=== PATIENT | male | born 1955 | race Caucasian/White ===

== ENCOUNTER 2024-09-20 08:38 | Outpatient (RCR) | payer MEDICARE, BC, SELFPAY ==
--- NOTE | 2024-09-05 14:17 | CTCSNOTE_ITS ---
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 a (C) Patient was treated with custom blocks. a. Electronically signed by: Vignesh Bhandari MD, MAHESHR 09/05/2024 2:15 PM
== END 2024-09-23 23:59 | disposition home or self-care (01) ==
LOC: SCTC 08:38
PROVIDERS: PCP Family Medicine; Referring Provider Family Medicine; Visit Provider Radiology Therapeutic Radiology
DX: Z51.0 Encounter for antineoplastic radiation therapy (principal); C44.329 Squamous cell carcinoma of skin of other parts of face
CPT/HCPCS: 77290; 77300; 77332; 77336; 77412

== ENCOUNTER 2024-10-19 08:38 | Outpatient (RCR) | payer MEDICARE, BC, SELFPAY ==
--- NOTE | 2024-09-25 12:32 | CTCTRTNOTE_ITS ---
[facility] [address], [place] [address] Weekly Management Date: 09/25/2024 ?? Name: NARESH LEIVA : 1955 A. Patient is currently at 2250 cGy. B. Patient is tolerating treatment well. C. Resume radiation therapy. Electronically signed by: Vignesh Bhandari M.D. 09/25/2024 12:30 PM
== END 2024-10-24 23:59 | disposition home or self-care (01) ==
LOC: SCTC 08:38
PROVIDERS: PCP Family Medicine; Referring Provider Family Medicine; Visit Provider Radiology Therapeutic Radiology
DX: Z51.0 Encounter for antineoplastic radiation therapy (principal); C44.329 Squamous cell carcinoma of skin of other parts of face; L59.8 Other specified disorders of the skin and subcutaneous tissue related to radiation; Y84.2 Radiological procedure and radiotherapy as the cause of abnormal reaction of the patient, or of later complication, without mention of misadventure at the time of the procedure
CPT/HCPCS: 77336; 77412

== ENCOUNTER 2024-11-02 09:58 | Outpatient (RCR) | payer MEDICARE, BC, SELFPAY ==
--- NOTE | 2024-11-02 10:23 | CTCTSUMM_ITS ---
[facility] [address] [place], [place] [address] Treatment Summary Date: 11/02/2024 MR#: [id number] Name: NARESH LEIVA : 1955 Dx: C44.320 Referring Physician: JOSE ANGEL Estrada (A) Diagnosis: [ICD10] C44.320 Squamous cell carcinoma of skin of unspecified parts of face (B) Aim of Treatment: ??Curative (C) Concomitant Chemotherapy: No (D) Radiation Dates: 09/11/2024 through 10/19/2024 Treatment Prescription R mu-ism ENFACE ELECTRONS 06 MeV E- 6,250 cGy 25 250 cGy Approved R anteror scalp ENFACE ELECTRONS 06 MeV E- 6,250 cGy 25 250 cGy Approved (E) All joaquin were treated using customized MLC Blocks (F) Finding at Discharge: Patient tolerated treatments well with good reaction of skin at the treatme nt sites. (G) Discharge Instructions: The patient was also advised to continue follow-up with Dr. Hernandez and [facility] physician: Cc: Jones Charles MD: Jamshid Hernandez MD (t) [phone] Electronically signed by: Vignesh Bhandari MD, DABR 11/02/2024 10:21 AM
== END 2024-11-24 23:59 | disposition home or self-care (01) ==
LOC: SCTC 09:58
PROVIDERS: PCP Family Medicine; Referring Provider Family Medicine; Visit Provider Radiology Therapeutic Radiology
DX: C44.320 Squamous cell carcinoma of skin of unspecified parts of face (principal); Z92.3 Personal history of irradiation
CPT/HCPCS: 99212; G0463

== ENCOUNTER → 2024-11-23 | Outpatient (CLI) | payer MEDICARE, BC, SELFPAY ==
[2024-11-23 08:32] LABS: Basophils % (Auto) 1 % (0-2.5); Eosinophils # (Auto) 0.2 Thou/mm3 (0.0-0.5); Eosinophils % (Auto) 3 % (0-10); Hemoglobin 12.4 g/dL (13.5-16.0); Immature Granulocytes % (Auto) 1 % (0-0); Immature Granulocytes Auto 0.03 Thou/mm3 (0.00-0.00); Lymphocytes # (Auto) 1.1 Thou/mm3 (1.0-4.8); Lymphocytes % (Auto) 17 % (10-50); Mean Corpuscular HGB Conc 33.5 g/dl (31.0-37.0); Mean Corpuscular Volume 95 fL (80-100); Monocytes # (Auto) 0.7 Thou/mm3 (0.0-0.8); Monocytes % (Auto) 11 % (0-12); Neutrophils # (Auto) 4.4 Thou/mm3 (1.8-7.7); Neutrophils % (Auto) 69 % (37-80); Nucleated Red Blood Cell % 0 /100 WBC (0); Platelet Count 325 Thou/mm3 (140-440); RDW Standard Deviation 48.9 fL (35.1-43.9); Red Blood Count 3.88 Miln/mm3 (4.50-5.90); White Blood Count 6.4 Thou/mm3 (3.8-10.6)
[2024-11-23 08:51] LABS: Glucose Estimated Average 117 mg/dL (80-131); Hemoglobin A1C 5.7 % Hgb (4.8-6.0)
[2024-11-23 08:53] LABS: Prostate Specific Antigen 4.81 ng/mL (0-4.00)
[2024-11-23 08:57] LABS: Sed Rate (ESR) 35 mm/hr (0-20)
[2024-11-23 09:11] LABS: Creatinine MALB Rnd Ur 57 mg/dL (30-125); Microalbumin, Random Urine < 3 mg/L (0-300)
[2024-11-23 09:12] LABS: Alanine Aminotransferase 16 U/L (10-49); Albumin/Globulin Ratio 1.4 (1.2-2.2); Alkaline Phosphatase 72 U/L (46-116); Anion Gap 5 (7-16); Aspartate Amino Transferase 16 U/L (0-34); BUN/Creatinine Ratio 23 Ratio (12-20); Bilirubin,Total 0.6 mg/dL (0.3-1.2); Blood Urea Nitrogen 25 mg/dL (9-23); Calcium 9.5 mg/dL (8.3-10.6); Calcium (Corrected) 9.5 mg/dL (8.5-10.1); Carbon Dioxide 27.7 mMol/L (20.0-31.0); Cardiac Risk Estimate 3.5 RATIO (4.0-6.7); Chloride 102 mMol/L (98-107); Cholesterol 165 mg/dL (132-200); Creatinine (Component) 1.1 mg/dL (0.6-1.3); Globulin 2.8 gm/dL (2.3-3.5); Glucose 96 mg/dL (74-106); HDL Cholesterol 47 mg/dL (40-60); LDL Cholesterol,Calculated 106 mg/dL (0-130); Osmolality,Calculated 274 (275-295); Potassium 4.5 mMol/L (3.4-5.1); Sodium 135 mMol/L (136-145); Total Protein 6.8 gm/dL (5.7-8.2); Triglycerides 60 mg/dL (30-150); eGFR > 60 See Note
== END | disposition home or self-care (01) ==
LOC: COPL 07:14
PROVIDERS: PCP Family Medicine; Referring Provider Family Medicine; Visit Provider Internal Medicine
DX: E11.65 Type 2 diabetes mellitus with hyperglycemia (principal); Z12.5 Encounter for screening for malignant neoplasm of prostate; I10 Essential (primary) hypertension; K12.2 Cellulitis and abscess of mouth; K21.9 Gastro-esophageal reflux disease without esophagitis; L03.221 Cellulitis of neck; L08.9 Local infection of the skin and subcutaneous tissue, unspecified; M05.79 Rheumatoid arthritis with rheumatoid factor of multiple sites without organ or systems involvement; M35.01 Sjogren syndrome with keratoconjunctivitis; M79.671 Pain in right foot; R53.83 Other fatigue; S60.519A Abrasion of unspecified hand, initial encounter; X58.XXXA Exposure to other specified factors, initial encounter; U07.1 COVID-19; Z92.25 Personal history of immunosuppression therapy
CPT/HCPCS: 36415; 80053; 80061; 82043; 82570; 83036; 84153; 85025; 85652; 86140

== ENCOUNTER → 2025-01-05 | Outpatient (CLI) | payer MEDICARE, BC, SELFPAY ==
[2025-01-05 10:57] LABS: Anion Gap 9 (7-16); BUN/Creatinine Ratio 20 Ratio (12-20); Blood Urea Nitrogen 26 mg/dL (9-23); Calcium 9.6 mg/dL (8.3-10.6); Carbon Dioxide 27.1 mMol/L (20.0-31.0); Chloride 103 mMol/L (98-107); Creatinine (Component) 1.3 mg/dL (0.6-1.3); Glucose 100 mg/dL (74-106); Osmolality,Calculated 282 (275-295); Potassium 5.4 mMol/L (3.4-5.1); Sodium 139 mMol/L (136-145); eGFR 59 See Note
== END | disposition home or self-care (01) ==
LOC: COPL 09:36
PROVIDERS: PCP Family Medicine; Referring Provider Family Medicine; Visit Provider Family Medicine
DX: E11.65 Type 2 diabetes mellitus with hyperglycemia (principal); I10 Essential (primary) hypertension
CPT/HCPCS: 36415; 80048

== ENCOUNTER → 2025-01-26 | Outpatient (CLI) | payer MEDICARE, BC, SELFPAY ==
[2025-01-26 10:35] LABS: Basophils % (Auto) 0 % (0-2.5); Eosinophils # (Auto) 0.2 Thou/mm3 (0.0-0.5); Eosinophils % (Auto) 3 % (0-10); Hematocrit 39.5 % (41.0-53.0); Hemoglobin 13.5 g/dL (13.5-16.0); Immature Granulocytes % (Auto) 1 % (0-0); Immature Granulocytes Auto 0.09 Thou/mm3 (0.00-0.00); Lymphocytes # (Auto) 1.1 Thou/mm3 (1.0-4.8); Lymphocytes % (Auto) 16 % (10-50); Mean Corpuscular HGB Conc 34.2 g/dl (31.0-37.0); Mean Corpuscular Volume 94 fL (80-100); Monocytes # (Auto) 0.6 Thou/mm3 (0.0-0.8); Monocytes % (Auto) 9 % (0-12); Neutrophils % (Auto) 70 % (37-80); Nucleated Red Blood Cell % 0 /100 WBC (0); Platelet Count 330 Thou/mm3 (140-440); RDW Standard Deviation 48.2 fL (35.1-43.9); Red Blood Count 4.22 Miln/mm3 (4.50-5.90); White Blood Count 7.1 Thou/mm3 (3.8-10.6)
[2025-01-26 10:37] LABS: Partial Thromboplastin Time 27.6 Seconds (22.0-36.0)
== END | disposition home or self-care (01) ==
LOC: COPL 08:52
PROVIDERS: PCP Family Medicine; Referring Provider Dentist; Visit Provider Dentist
DX: R22.0 Localized swelling, mass and lump, head (principal); M27.40 Unspecified cyst of jaw
CPT/HCPCS: 36415; 85025; 85610; 85730

== ENCOUNTER 2025-05-16 09:08 | Outpatient (RCR) | payer MEDICARE, BC, SELFPAY ==
--- NOTE | 2025-05-16 10:15 | CTCFLWUP_ITS ---
[facility] [address] [place], [place] [address] FOLLOW-UP NOTE Date: 05/16/2025 MR#: [id number] Name: NARESH LEIVA : 1955 Dx: C44.320 Squamous cell carcinoma of skin of unspecified parts of face Identification. Patient was previously seen for squamous cell CA of skin and had 2 sites treated in right anterior scalp and right nondenominational completed 10/19/2024. Patient had a good reaction and there is no sign of recurrence thus far. On 04/19/2025 patient underwent superficial right parotidectomy with facial nerve monitoring. 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 P16 patchy positive no definite evidence of angiolymphatic invasion and perineural invasion. According to comment it was unclear if this is squamous CA invading or arising from the parotid gland. According to Dr. Luis, given his diagnosis of multiple squamous SCCA skin cancers this is likely a met and the likelihood of positive margins recommended radiation therapy. PET scan also recommended due to the apparent aggressiveness of this skin cancer Inspected the wound in the right facial region which appears to be healing satisfactorily and I will see the patient again in a month for further wound healing and the PET scan results to be discussed. . Electronically signed by: Vignesh Bhandari M.D. 05/16/2025 10:12 AM
== END 2025-05-24 23:59 | disposition home or self-care (01) ==
LOC: SCTC 09:08
PROVIDERS: PCP Family Medicine; Referring Provider Radiology Therapeutic Radiology; Visit Provider Radiology Therapeutic Radiology
DX: C07 Malignant neoplasm of parotid gland (principal); Z85.828 Personal history of other malignant neoplasm of skin
CPT/HCPCS: 99213; G0463

== ENCOUNTER → 2025-05-29 | Outpatient (CLI) | payer MEDICARE, BC, SELFPAY ==
[2025-05-29 14:35] LABS: Basophils # (Auto) 0.0 Thou/mm3 (0.0-0.2); Basophils % (Auto) 0 % (0-2.5); Eosinophils # (Auto) 0.1 Thou/mm3 (0.0-0.5); Eosinophils % (Auto) 3 % (0-10); Hematocrit 34.9 % (41.0-53.0); Hemoglobin 11.3 g/dL (13.5-16.0); Immature Granulocytes Auto 0.03 Thou/mm3 (0.00-0.00); Lymphocytes # (Auto) 1.3 Thou/mm3 (1.0-4.8); Lymphocytes % (Auto) 24 % (10-50); Mean Corpuscular HGB Conc 32.4 g/dl (31.0-37.0); Mean Corpuscular Hemoglobin 32.1 pg (25.0-35.0); Mean Corpuscular Volume 99 fL (80-100); Monocytes # (Auto) 0.6 Thou/mm3 (0.0-0.8); Monocytes % (Auto) 10 % (0-12); Neutrophils # (Auto) 3.5 Thou/mm3 (1.8-7.7); Neutrophils % (Auto) 62 % (37-80); Nucleated Red Blood Cell # 0.00 Thou/mm3 (0.00-0.00); Nucleated Red Blood Cell % 0 /100 WBC (0); Platelet Count 299 Thou/mm3 (140-440); RDW Standard Deviation 51.6 fL (35.1-43.9); Red Blood Count 3.52 Miln/mm3 (4.50-5.90); White Blood Count 5.6 Thou/mm3 (3.8-10.6)
[2025-05-29 14:45] LABS: Glucose Estimated Average 123 mg/dL (80-131); Hemoglobin A1C 5.9 % Hgb (4.8-6.0)
[2025-05-29 14:52] LABS: Sed Rate (ESR) 12 mm/hr (0-20)
[2025-05-29 14:56] LABS: Alanine Aminotransferase 13 U/L (10-49); Albumin, Serum 3.9 gm/dL (3.4-4.8); Albumin/Globulin Ratio 1.8 (1.2-2.2); Alkaline Phosphatase 67 U/L (46-116); Anion Gap 8 (7-16); Aspartate Amino Transferase 19 U/L (0-34); BUN/Creatinine Ratio 24 Ratio (12-20); Bilirubin,Total 0.2 mg/dL (0.3-1.2); Blood Urea Nitrogen 33 mg/dL (9-23); C-Reactive Protein < 0.5 mg/dL (0.0-0.9); Calcium 9.2 mg/dL (8.3-10.6); Calcium (Corrected) 9.3 mg/dL (8.5-10.1); Carbon Dioxide 25.9 mMol/L (20.0-31.0); Chloride 107 mMol/L (98-107); Creatinine (Component) 1.4 mg/dL (0.6-1.3); Globulin 2.2 gm/dL (2.3-3.5); Glucose 104 mg/dL (74-106); Osmolality,Calculated 288 (275-295); Potassium 5.0 mMol/L (3.4-5.1); Sodium 141 mMol/L (136-145); Total Protein 6.1 gm/dL (5.7-8.2); eGFR 54 See Note
== END | disposition home or self-care (01) ==
LOC: COPL 13:26
PROVIDERS: PCP Family Medicine; Referring Provider Internal Medicine; Visit Provider Internal Medicine
DX: E11.65 Type 2 diabetes mellitus with hyperglycemia (principal); I10 Essential (primary) hypertension; K12.2 Cellulitis and abscess of mouth; K21.9 Gastro-esophageal reflux disease without esophagitis; L03.221 Cellulitis of neck; L08.9 Local infection of the skin and subcutaneous tissue, unspecified; M05.79 Rheumatoid arthritis with rheumatoid factor of multiple sites without organ or systems involvement; M35.01 Sjogren syndrome with keratoconjunctivitis; M79.671 Pain in right foot; R53.83 Other fatigue; S60.519A Abrasion of unspecified hand, initial encounter; X58.XXXA Exposure to other specified factors, initial encounter; U07.1 COVID-19; Z92.25 Personal history of immunosuppression therapy
CPT/HCPCS: 36415; 80053; 83036; 85025; 85652; 86140

== ENCOUNTER → 2025-06-26 | Outpatient (CLI) | payer MEDICARE, BC, SELFPAY ==
--- NOTE | 2025-06-26 09:15 | XR_ITS ---
EXAMINATION: PET/CT FUSION SKULL TO THIGH EXAM DATE AND TIME: June 26, 2025 1222 hours INDICATIONS: Diagnosis squamous cell carcinoma of the face CTDI:vol (mGy) 5.57 DLP: (mGycm) 578 PROCEDURE: 14.6 mCi FDG was administered intravenously To allow for distribution and uptake of radiotracer, the patient was allowed to rest quietly in a shielded room. Imaging was performed on an integrated 16-slice PET/CT scanner, with scanning from the skull base to the mid thigh. Serum blood glucose at the time of the injection was measured 105 mg/dL. CT scanning was performed without oral or intravenous contrast material. FINDINGS: Head and Neck: Hypermetabolic soft tissue mass right face surrounding the right mandibular condyle, involving the anterior and posterior margins of the ear, beginning above the posterior right zygomatic arch and extending caudad to below and lateral to the right mandibular angle and extending anteriorly to the mid right zygomatic process, measuring at least 4.9 x 3.8 x 3.6 cm The mass begins above the posterior right zygomatic arch and extends caudad to below and lateral to the right mandibular angle Chest: Hypermetabolic 10 mm pulmonary nodule spiculated margins posterior right upper lobe image 121 Abdomen and Pelvis: There is no michelle hypermetabolism in retroperitoneal or pelvic chains. The spleen is normal in size and FDG avidity. Musculoskeletal: Marrow uptake is within normal range. IMPRESSION: Hypermetabolic soft tissue mass right face surrounding the right mandibular condyle,, extending from the posterior right zygomatic arch caudad to below and lateral to the right mandibular angle, 4.9 x 3.8 x 3.6 cm Hypermetabolic 10 mm pulmonary nodule spiculated margins right upper lobe
== END | disposition home or self-care (01) ==
PROVIDERS: Referring Provider Radiology Therapeutic Radiology; Visit Provider Radiology Therapeutic Radiology
DX: R22.0 Localized swelling, mass and lump, head (principal); R91.1 Solitary pulmonary nodule; C44.320 Squamous cell carcinoma of skin of unspecified parts of face; C44.329 Squamous cell carcinoma of skin of other parts of face
CPT/HCPCS: 78815; A9552

== ENCOUNTER 2025-07-24 07:53 | Outpatient (RCR) | payer MEDICARE, BC, SELFPAY ==
--- NOTE | 2025-07-03 09:03 | CTCFLWUP_ITS ---
[facility] [address] [place], [place] [address] FOLLOW-UP NOTE Date: 07/03/2025 MR#: [id number] Name: NARESH LEIVA : 1955 Dx: C44.320 Squamous cell carcinoma of skin of unspecified parts of face Identification. Patient with squamous cell CA of skin treatments in the past with various measures including surgery and radiation therapy underwent superficial right parotidectomy 03/19/2025 p16 patchy positive with no definite evidence of angiolymphatic invasion and perineural invasion. According to path report it was unclear if squamous cell CA was invading into or arising from the parotid gland. PET scan ordered 06/26/2025 revealed hypermetabolic soft tissue mass right face surrounding the right mandibular condyle extending from the posterior right zygomatic arch caudad to below and lateral to the right mandibular angle 4.9 x 3.8 x 3.6 cm. There was also hypermetabolic 10 mm pulmonary nodule right upper lobe. There is an obvious urgency to begin radiation therapy soon as possible. Patient is having pain in the right side of the face and using local care for what appears to be oozing from the right auricular region and taking pain pills. A#1. 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 Unclear if malignancy was invading into or arising from the parotid gland according to path report. History of multiple SCCA treated with surgery and radiation in the past, multiple areas of body. A#2. PET scan shows hypermanic soft tissue mass right face extending from the posterior right zygomatic to below and lateral to right mandibular angle. A#3. Hypermetabolic 10 mm pulmonary nodule right upper lobe. A#4. Patient has history of valley fever and any case there is an urgency to treat the right facial region which will begin POLI, approximately 7000 cGy to area at risk using modern VMAT technique. A#5. Posttreatment PET will check on response along with checking on the right upper lobe lesion which is barely large enough to biopsy at this point A#6. Patient told to see the dentist regarding preradiation dental eval and patient has an appointment with Dr. Luis in AM. Side effects explained. Cc: Jones Charles MD Brain Toby DELGADO MD this finished this okay I wish I was just to be smarter and Electronically signed by: Vignesh Bhandari M.D. 07/03/2025 9:01 AM
--- NOTE | 2025-07-03 10:15 | CTCTXPLN_ITS ---
[facility] [place] [address] [place], [place] [address] Physician Clinical Treatment Planning Note Date of Service: 07/03/2025 Name: NARESH LEIVA : 1955 The patient has agreed to proceed with Radiation therapy. Tests and supporting medical records were interpreted to assist in defining the tumor location and extent of disease. Further imaging will be necessary to contour and delineate the volume to which the XRT will be provided. A. Treatment Intent: Curative B. Modality: 6 MV C. Requested Technique: VMAT D. Treatment Site: Right face neck E. Critical structures to be contoured on plan: F. In order to accomplish this plan, I am ordering/Prescribing the followin. Simulations (s) will be performed to accomplish a reproducible treatment position, to determine optimal treatment portals/beam arrangements, to design beam modifying devices and verify treatment portals on patient prior to the commencement of Radiation Therapy. Right face neck 2. Devices; for immobilization and beam shaping: Aquaplast 3. CT Guidance for placement of XRT joaquin Scan area: 4. Portal images Frequency: 5. Invivo transit dose measurement once per week on all VMAT patients. 6. Special Physics Consult Requested for: 7. Other requests: G. Dose Objectives: Curative Electronically signed by: Vignesh Bhandari M.D. 07/03/2025 10:13 AM
--- NOTE | 2025-07-03 10:17 | CTCTXPLNST_ITS ---
Radiation Oncology Treatment Planning Sheet Name: NARESH LEIVA MR#: [id number] : 1955 Dx: C44.320 Squamous cell carcinoma of skin of unspecified parts of face Date of Service: 07/03/2025 Account #: ?? Pt Treatment Intent: curative palliative other: Stage: Procedure CPT # Ordered Spec. Procedure 35222 Mccloud Complex (set-up) 79022 Head and neck 1 Mccloud Simple 64930 IMRT Plan 62482 1 MLC Devices VMAT 60455 3 Mccloud 3 D 69038 TRTMT dev Complex 35990 Aquaplast 1 TRTMT dev simple 58198 Basic Jaime 56872 9 Special Dosimetry 03951 Spec Physics 84678 Port Films 63339 SRS Cranial/1FX 15697 SBR 5 FX or Less /ex: 5 = 5 fx 88495 IMRT Simple 86626 7000 35 IMRT Complex 38525 IGRT 24054 35 Rad del com 6-10 24173 Rad del com 11 41938 Cont Med Physics 09712 7 Treatment Planning 96090 1 Weekly Evaluation 95464 7 Rad del com 20 mev 57573 Special Port Plan 93883 TRTMT dev inter 68944 Isodose Complex 62218 Isodose simple 39982 Resp Motion Mgmt Simulation 12491 Placement of Fiducial Markers 43799 Electronically Signed By: Vignesh Bhandari MD, MAHESHR 07/03/2025 10:14 AM
--- NOTE | 2025-07-03 10:54 | CTCFLWUP_ITS ---
[facility] [address] [place], [place] [address] FOLLOW-UP NOTE Date: 07/03/2025 MR#: [id number] Name: NARESH LEIVA : 1955 Dx: C44.320 Squamous cell carcinoma of skin of unspecified parts of face Identification. Patient with squamous cell CA of skin with various treatment in the past including surgery and radiation therapy. Patient underwent superficial right parotidectomy performed by Dr. Joseph Prieto 04/19/2025 p16 patchy positive with no definite evidence of angiolymphatic invasion and perineural invasion. According to path report it was unclear if squamous cell CA was invading into or arising from the parotid gland. PET scan 06/26/2025 revealed hypermetabolic soft tissue mass right face surrounding the right mandibular condyle extending from the posterior right zygomatic arch caudad to below and lateral to the right mandibular angle 4.9 x 3.8 x 3.6 cm. There was also hypermetabolic 10 mm pulmonary nodule right upper lobe. Patient is having pain in the right side of face using local care for the oozing from the right auricular region and taking pain pills. A#!. Squamous SCCA right parotid region status post right parotidectomy 04/19/2025. Unclear if malignancy was invading into or arising from the parotid gland according to path report. History of multiple SCCA treated with surgery and radiation in the past. A#2. PET scan shows hypermetabolic soft tissue mass right face extending to the posterior right zygomatic area below and lateral to the right mandibular angle. A#3. Hypermetabolic 10 mm pulmonary nodule right upper lobe. A#4. History of valley fever and in any case there is urgency to treat the right facial neck region which we will begin POLI. 7000 to area at risk using modern VMAT technique. A#5. Posttreatment PET will check on response along with checking on the right upper lobe lesion which is barely enough to biopsy at this point. A#6. Patient told to see dentist regarding preradiation dental eval and patient has appointment with Dr. Luis in AM. Side effects explained. CC: Jones Luis MD DDS Electronically signed by: Vignesh Bhandari M.D. 07/03/2025 10:51 AM
== END 2025-07-24 23:59 | disposition home or self-care (01) ==
LOC: SCTC 07:53
PROVIDERS: PCP Family Medicine; Referring Provider Family Medicine; Visit Provider Radiology Therapeutic Radiology
DX: Z51.0 Encounter for antineoplastic radiation therapy (principal); C44.329 Squamous cell carcinoma of skin of other parts of face; L59.9 Disorder of the skin and subcutaneous tissue related to radiation, unspecified; K12.33 Oral mucositis (ulcerative) due to radiation; Y84.2 Radiological procedure and radiotherapy as the cause of abnormal reaction of the patient, or of later complication, without mention of misadventure at the time of the procedure
CPT/HCPCS: 77014; 77290; 77300; 77301; 77334; 77336; 77338; 77385; 99213; G0463

== ENCOUNTER 2025-08-24 07:59 | Outpatient (RCR) | payer MEDICARE, BC, SELFPAY | END 2025-08-24 23:59 | disposition home or self-care (01) | LOC: SCTC 07:59 | PROVIDERS: PCP Family Medicine; Referring Provider Family Medicine; Visit Provider Radiology Therapeutic Radiology | DX: Z51.0 Encounter for antineoplastic radiation therapy (principal); C44.329 Squamous cell carcinoma of skin of other parts of face; L59.8 Other specified disorders of the skin and subcutaneous tissue related to radiation; Y84.2 Radiological procedure and radiotherapy as the cause of abnormal reaction of the patient, or of later complication, without mention of misadventure at the time of the procedure; K12.33 Oral mucositis (ulcerative) due to radiation; G89.3 Neoplasm related pain (acute) (chronic); R63.4 Abnormal weight loss; Z68.22 Body mass index [BMI] 22.0-22.9, adult | CPT/HCPCS: 77336; 77385 ==

== ENCOUNTER → 2025-08-31 | Outpatient (CLI) | payer MEDICARE, BC, SELFPAY ==
[2025-08-31 11:35] LABS: Glucose Estimated Average 126 mg/dL (80-131); Hemoglobin A1C 6.0 % Hgb (4.8-6.0)
[2025-08-31 11:51] LABS: T4 (Thyroxine) 7.7 mcg/dL (4.5-10.9)
[2025-08-31 11:52] LABS: Anion Gap 11 (7-16); BUN/Creatinine Ratio 26 Ratio (12-20); Blood Urea Nitrogen 37 mg/dL (9-23); Calcium 10.0 mg/dL (8.3-10.6); Carbon Dioxide 23.8 mMol/L (20.0-31.0); Chloride 96 mMol/L (98-107); Creatinine (Component) 1.4 mg/dL (0.6-1.3); Glucose 113 mg/dL (74-106); Osmolality,Calculated 272 (275-295); Potassium 4.3 mMol/L (3.4-5.1); Sodium 131 mMol/L (136-145); Thyroid Stimulating Hormone 0.87 uIU/mL (0.55-4.78); eGFR 54 See Note
== END | disposition home or self-care (01) ==
LOC: COPL 10:40
PROVIDERS: PCP Family Medicine; Referring Provider Family Medicine; Visit Provider Family Medicine
DX: E11.22 Type 2 diabetes mellitus with diabetic chronic kidney disease (principal); I12.9 Hypertensive chronic kidney disease with stage 1 through stage 4 chronic kidney disease, or unspecified chronic kidney disease; N18.31 Chronic kidney disease, stage 3a; R00.1 Bradycardia, unspecified
CPT/HCPCS: 36415; 80048; 83036; 84436; 84443

== ENCOUNTER 2025-09-11 08:43 | Outpatient (RCR) | payer MEDICARE, BC, SELFPAY | END 2025-09-23 23:59 | disposition home or self-care (01) | LOC: SCTC 08:43 | PROVIDERS: PCP Family Medicine; Referring Provider Family Medicine; Visit Provider Radiology Therapeutic Radiology | DX: Z51.0 Encounter for antineoplastic radiation therapy (principal); C44.329 Squamous cell carcinoma of skin of other parts of face; R91.1 Solitary pulmonary nodule; Z86.19 Personal history of other infectious and parasitic diseases | CPT/HCPCS: 77336; 77385; 99212; G0463 ==

== ENCOUNTER → 2025-10-05 | Outpatient (CLI) | payer MEDICARE, BC, SELFPAY ==
--- NOTE | 2025-10-05 10:15 | XR_ITS ---
EXAMINATION: PET/CT FUSION SKULL TO THIGH EXAM DATE AND TIME: October 05, 2025, 11:20 a.m., comparison CT abdomen pelvis June 18, 2007, PET CT scan 06/26/2025, PET/CT scan 06/26/2025 INDICATIONS: Squamous cell carcinoma, monitoring response to therapy CTDI:vol (mGy) 4.61 DLP: (mGycm) 478.23 PROCEDURE: 13.84 mCi FDG was administered intravenously To allow for distribution and uptake of radiotracer, the patient was allowed to rest quietly in a shielded room. Imaging was performed on an integrated 16-slice PET/CT scanner, with scanning from the skull base to the mid thigh. Serum blood glucose at the time of the injection was measured 131 mg/dL. CT scanning was performed without oral or intravenous contrast material. FINDINGS: Head and Neck: Marked decrease in size of hypermetabolic mass right face surrounding the right mandibular condyle, the masslike area lateral to the right mandibular angle measures 30 x 14 mm compared to 49 x 38 mm on PET/CT scan June 26, 2025 Chest: Interval non-hypermetabolic 3 mm 4 mm pulmonary nodules right upper lobe The previously noted 14 mm nodule is cavitary and now measures 15 mm 4 mm pulmonary nodule cavitary left upper lobe Abdomen and Pelvis: There is no michelle hypermetabolism in retroperitoneal or pelvic chains. The spleen is normal in size and FDG avidity. Musculoskeletal: Marrow uptake is within normal range. IMPRESSION: Marked decrease in size of hypermetabolic right facial mass, currently measuring 30 x 14 mm compared to 49 x 38 mm on PET/CT scan June 26, 2025 Interval significant pulmonary nodular metastatic disease
== END | disposition home or self-care (01) ==
LOC: CDIM 09:58
PROVIDERS: PCP Family Medicine; Referring Provider Radiology Therapeutic Radiology; Visit Provider Radiology Therapeutic Radiology
DX: R22.0 Localized swelling, mass and lump, head (principal); C78.00 Secondary malignant neoplasm of unspecified lung; C44.320 Squamous cell carcinoma of skin of unspecified parts of face; C44.222 Squamous cell carcinoma of skin of right ear and external auricular canal
CPT/HCPCS: 78815; A9552